=== PATIENT | female | born 1960 | race Caucasian/White ===

== ENCOUNTER 2023-12-02 15:30 | Emergency (ER) | payer BC, SELFPAY ==
[2023-12-02 15:37] VITALS: BP 171/90; PULSE 78; RESP 18; TEMP 37.1; O2SAT 96; BMI 32.0
--- NOTE | 2023-12-02 16:33 | ED_ITS ---
HPI - Dental/Oral General Date Seen: 12/02/23 Chief complaint: Dental/Oral/Mouth Injury/Pain Stated complaint: R side tooth infection Time Seen by Provider: 12/02/23 16:18 Source: patient Mode of arrival: ambulatory Limitations: no limitations History of Present Illness HPI Narrative: patient is a 63-year-old female presenting for dental pain. She states over the weekend she started having worsening tooth pain. It is the right upper molars. She spoke to her dental office today and they told her that she will need antibiotics. She does have a sore throat but denies any difficulty b reathing or shortness of breath. Initially broke this to a couple years ago then 3 weeks ago noticed another child broke off. Pain has been increasing since then but notably got worse over the weekend. her dental office was concerned about the infection getting worse and recommended she come to the emergency department for possible IV antibiotics. Has been taking Advil for pain which has been helping mildly with the symptoms. Does states she will feel like she will be warm at night but has not had any objective fevers. Denies chest pain, headache, vision changes, weakness, numbness. No other concerns noted at this time. Related Data Home Medications Medication Instructions Recorded Confirmed Yamilet 12/02/23 omeprazole 12/02/23 Previous Rx's Medication Instructions Recorded clindamycin HCl 150 mg capsule 450 mg (3 x 150 mg) PO TID 7 days 12/02/23 #63 caps Allergies Allergy/AdvReac Type Severity Reaction Status Date / Time amoxicillin Allergy Intermediate Verified 12/02/23 15:43 egg Allergy Unknown Verified 12/02/23 15:54 latex Allergy Unknown Verified 12/02/23 15:54 sulfamethoxazole Allergy Unknown Verified 12/02/23 15:54 [From Bactrim] trimethoprim [From Bactrim] Allergy Unknown Verified 12/02/23 15:54 acetaminophen [From Vicodin] AdvReac Intermediate vomitting Verified 12/02/23 15:54 azithromycin AdvReac Intermediate Vomiting Verified 12/02/23 15:43 hydrocodone [From Vicodin] AdvReac Intermediate vomitting Verified 12/02/23 15:54 Review of Systems Narrative: Pertinent systems reviewed and were negative unless stated in HPI Exam Narrative: Exam Narrative: Const: Well-nourished, Well-developed, in mild distress Eyes: PERRL, no conjunctival injection, and symmetrical lids HENT: Atraumatic external nose and ears. Moist mucous membranes. poor dentition with multiple previously filled cavities and a broken right molar tooth 3. Mild erythema around the area with no drainage noted, uvula midline, no tonsillar swelling or exudate. No swelling noted under her tongue Neck: Symmetric, trachea midline, No thyromegaly. no swelling noted to neck Respiratory: No audible stridor heard, no increased work of breathing MSK:Extremities w/o deformity, Normal Active ROM Skin: Warm, Dry. No rashes or lesions. Neuro: Normal Muscle tone, No focal neurological deficits. Psych: Awake, Alert, & Oriented x3. Appropriate mood and affect. Const: Vital Signs, click to edit/add: Vital Signs - 24 hr 12/02/23 15:37 Temperature 98.7 F Pulse Rate [Pulse Oximeter] 78 Respiratory Rate 18 Blood Pressure [Ri ght Upper Arm] 171/90 H Pulse Oximetry 96 Oxygen Delivery Me thod Room Air Course Vital Signs Vital signs: Initial Vital Signs Temperature 98.7 F 12/02/23 15:37 Temperature Source Temporal Artery Scan 12/02/23 15:37 Pulse Rate 78 12/02/23 15:37 Respiratory Rate 18 12/02/23 15:37 Blood Pressure 171/90 H 12/02/23 15:37 Blood Pressure Mean 117 H 12/02/23 15:37 Blood Pressure Position Sitting 12/02/23 15:37 Pulse Oximetry 96 12/02/23 15:37 Oxygen Delivery Method Room Air 12/02/23 15:37 Vital Signs Temperature 98.7 F 12/02/23 15:37 Pulse Rate 78 12/02/23 15:37 Respiratory Rate 18 12/02/23 15:37 Blood Pressure 171/90 H 12/02/23 15:37 Pulse Oximetry 96 12/02/23 15:37 Oxygen Delivery Method Room Air 12/02/23 15:37 Temperature 98.7 F 12/02/23 15:37 Pulse Rate 78 12/02/23 15:37 Respiratory Rate 18 12/02/23 15:37 Blood Pressure 171/90 H 12/02/23 15:37 Pulse Oximetry 96 12/02/23 15:37 Oxygen Delivery Method Room Air 12/02/23 15:37 MDM - Dental/Oral MDM Narrative Medical decision making narrative: patient is a 63-year-old female presenting for tooth pain. Exam in the mouth does show poor dentition with this broken tooth previously mention. There is some erythema but do not see any drainable abscess on my exam. Overall do not see any signs of Anant angina, retropharyngeal abscess, peritonsillar abscess, lemierre syndrome. She is not having trismus, dyspnea. She is otherwise looking well. While she does have mild pain while swallowing solids she states swallowing cold liquids does not hurt at all. At this time I do not believe she requires IV antibiotics or imaging. I will prescribe her oral antibiotics. I explained to her that while I do not believe the IV antibiotics are required at this time we are able to give her an IV dose prior to discharge if she wants. She declined and states she just wants the antibiotics So she can go home and take some Advil. Discharge Plan Discharge Clinical Impression: Dental caries, Fracture of tooth Patient Disposition: Home, Self-Care Condition: Stable Instructions: Tooth Extraction (DC) Additional Instructions: continue take Tylenol and Advil for pain. Take clindamycin 450 mg 3 times a day for the next 7 days. Follow-up with your dentist. Return to emergency department for new or worsening symptoms. If it starts becoming difficult to breathe is important to return immediately. Prescriptions: New clindamycin HCl 150 mg capsule 450 mg PO TID 7 Days Qty: 63 0RF No Action omeprazole Yamilet Follow Up/Referrals: Cassandra Lr MD [Primary Care Provider] - Stand Alone [facility] Inst[facility]
[2023-12-02] MEDS: CLINDAMYCIN 150 MG CAPSULE 450 MG PO (16:49)
== END 2023-12-02 16:52 | disposition home or self-care (01) ==
PROVIDERS: Emergency Provider Student in an Organized Health Care Education/Training Program; PCP Family Medicine
DX: K02.9 Dental caries, unspecified (principal); K03.81 Cracked tooth
CPT/HCPCS: 99282; 99283; A9270